=== PATIENT | female | born 1995 | race African-American/Black ===

== ENCOUNTER 2021-01-31 12:37 | Emergency (ER) | payer MEDICAID ==
[~2021-01-31] VITALS: Ht 165.1 cm; Wt 61.2 kg
[2021-01-31] MEDS ORDERED: NORE1TAB23 PO (12:44)
--- NOTE | 2021-01-31 12:48 | NUR ---
patient taken to room 5a awaiting to be seen by ER charlene.
--- NOTE | 2021-01-31 13:05 | NUR ---
URINE SAMPLE COLLECTED. DROPPED OFF AT LAB AT THIS TIME.
[2021-01-31 13:19] LABS: *BILIRUBIN,URIN NEGATIVE (NEGATIVE); *BLOOD, URINE NEGATIVE (NEGATIVE); *CLARITY,URINE CLEAR (CLEAR); *COLOR,URINE YELLOW (YELLOW); *KETONES,URINE NEGATIVE (NEGATIVE); *UROBILINOGEN,URINE 0.2 E.U./dl (NORMAL); LEUKOCYTE ESTERASE ,URINE NEGATIVE (NEGATIVE); NITRITE, URINE NEGATIVE (NEGATIVE); PH,URINE 6.5 (5.0-8.0); UGLUCOSE NEGATIVE (NEGATIVE)
[2021-01-31 13:23] LABS: *URINE HCG, QUAL NEG (NEGATIVE)
[2021-01-31] MEDS ORDERED: IBUPROFEN 600 MG TABLET PO ONE (13:45)
[2021-01-31] MEDS ORDERED: IBUPROFEN 600 MG TABLET ONE (13:48)
--- NOTE | 2021-01-31 14:00 | NUR ---
ULTRASOUND BEING DONE AT BEDSIDE AND REPORTED TO DR DAVID.
--- NOTE | 2021-01-31 14:23 | NUR ---
patient signed and given discharge instructions.
== END 2021-01-31 14:34 | disposition home or self-care (01) ==
LOC: ER 12:37
DX: N83.209 Unspecified ovarian cyst, unspecified side (principal)
CPT/HCPCS: 84703; A4663